=== PATIENT | male | born 1990 | race Two or more races ===

== ENCOUNTER 2017-10-26 23:24 | Emergency (ER) | payer OTHER ==
[~2017-10-26] VITALS: Ht 180.3 cm; Wt 90.7 kg
[2017-10-26 23:39] VITALS: BP 141/87
[2017-10-27] MEDS ORDERED: CYCL10TA2 PO (00:15)
[2017-10-27] MEDS ORDERED: NAPR-514 PO (00:15)
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
== END 2017-10-27 00:37 | disposition home or self-care (01) ==
LOC: ER 23:24
DX: M54.5 Low back pain (principal); V43.52XA Car driver injured in collision with other type car in traffic accident, initial encounter; Y93.89 Activity, other specified; Y92.410 Unspecified street and highway as the place of occurrence of the external cause; Y99.8 Other external cause status
CPT/HCPCS: 99283